=== PATIENT | female | born 1985 | race Caucasian/White ===

== ENCOUNTER 2017-12-06 10:58 | Outpatient (CLI) | END 2017-12-06 10:59 | disposition home or self-care (01) | LOC: LAB 10:58 | PROVIDERS: ATTEND Nurse Practitioner Family | DX: Z00.00 Encounter for general adult medical examination without abnormal findings (principal); Z20.5 Contact with and (suspected) exposure to viral hepatitis; R00.1 Bradycardia, unspecified; R01.1 Cardiac murmur, unspecified; R53.83 Other fatigue | CPT/HCPCS: 36415; 80053; 80061; 80074; 81001; 82306; 82607; 84443; 85025; 86708; 86803; 87086; 87186; 87340; 87522; 93005; 93010 ==

== ENCOUNTER 2017-12-15 06:42 | Outpatient (CLI) ==
--- NOTE | 2017-12-19 12:15 | ECHO2D ---
Date of Exam: 12/15/17 Ordering Physician: AYDEE MAIN APRN Room # : OP Reason for Echo: CARDIOMEGALY, HEART MURMUR, H/O CONGENITAL HEART DISEAS Murmurs: SYSTOLIC M-Mode Normal Adult Results LV Dimensions Normal Adult Results AoV Opening excursions >1.6 >1.6 LVEDD-base- 3.5-5.8 3.6 Ao root dimensions 2.0-3.7 3.1 LVESD-base- 3.1-4.6 L. Atrium dimensions 1.9-3.8 2.9 Post. Wall thickness 0.8-1.1 1.0 IV septum (thickness) 0.7-1.2 1.0 Post. Wall excursion 0.72-1.3 NORMAL Septal motion NORMAL Systolic motion R. Ventricular cavity 1.5-2.0 NORMAL LVEF 60% 72% Paradoxical septal wall motion NORMAL 2-D : 2-D M Mode Echocardiogram was performed using apical four chamber and left parasternal long and short axis views. Mitral, tricuspid and aortic valves appear to be normal. Contractility of the left ventricle seems to be normal, so is the cavity size. Left atrial cavity size and aortic root appear to be normal. There is no pericardial effusion. There is no thrombus noted in the left ventricular or left aortic cavity. No mitral valve prolapse noted. COLOR FLOW: Abnormal turbulence in aortic root area. Abnormal turbulence in aortic valve/root area M-MODE: MV: NORMAL AV: NORMAL TV: NORMAL PV: CHAMBER SIZE: NORMAL WALL MOTION: NORMAL PERICARDIUM: NORMAL INTERPRETATION: 1. NORMAL 2 "D" "M" MODE ECHO 2. VSD TYPE DEFECT? 3. GET REPORT FROM PREVIOUS ECHO IN [place] [facility] RECOMMEND: COMPLETE ECHO WITH BUBBLE STUDY, RULE OUT VSD MTDD
== END 2017-12-15 06:43 | disposition home or self-care (01) ==
LOC: CAR 06:42
PROVIDERS: ATTEND Nurse Practitioner Family
DX: I51.7 Cardiomegaly (principal); R53.83 Other fatigue